=== PATIENT | female | born 1935 | race Caucasian/White ===

== ENCOUNTER 2022-10-06 08:57 | Emergency (ER) | payer MEDICARE, SELFPAY ==
[2022-10-06 09:11] VITALS: BP 141/78; PULSE 94; RESP 20; TEMP 36.6; O2SAT 100
--- NOTE | 2022-10-06 09:30 | ED.URI ---
HPI - URI/Sore Throat General Chief Complaint: Upper Respiratory Infection Stated Complaint: RUNNY NOSE/CONGESTION Time Seen by Provider: 10/06/22 09:29 Source: patient and RN notes reviewed Mode of arrival: ambulatory Limitations: no limitations History of Present Illness HPI Narrative: 86 Year old female presents with concern for cough, runny nose, wheezing from headache. She denies fever, aches, chills, sweats. She reports a history of reactive airway disease, she has a nebulizer at home. She has been using that throughout the day for the past 2 days. She last used at 3:00 a.m.. She reports she usually gets an annual exacerbation that requires antibiotics steroids. MD elicited complaint: cough Related Data Home Medications Medication Instructions Recorded Confirmed fluticasone 250 mcg-salmeterol 50 1 inh inhalation BID 10/06/22 10/06/22 mcg/dose blistr powdr for inhalation (Wixela Inhub) hydrochlorothiazide 25 mg tablet 25 mg EVERY OTHER DAY 10/06/22 10/06/22 montelukast 10 mg tablet 10 mg DAILY 10/06/22 10/06/22 omeprazole 20 mg capsule,delayed 20 mg BID 10/06/22 10/06/22 release Allergies Allergy/AdvReac Type Severity Reaction Status Date / Time No Known Allergies Allergy Verified 10/06/22 09:21 Review of Systems Review of Systems: CONSTITUTIONAL: Denies malaise, chills, sweats, or fever. EYES: Denies visual changes, redness, or discharge. ENT: Reports rhinorrhea. Congestion, sinus pain, otalgia and sore throat. CARDIOVASCULAR: Denies chest pain, palpitations, or edema. RESPIRATORY: Reports cough, wheezing. Denies dyspnea. GASTROINTESTINAL: Denies abdominal pain, nausea, vomiting, diarrhea SKIN: Denies rash or itching. MUSCULOSKELETAL: Denies myalgia. NEUROLOGIC: Reports headache. All systems reviewed & are unremarkable except as noted in HPI and below PMFSH Comments At time of signature, agree with nursing past medical, surgical, social and family history. There is no relevant family history pertinent to the presenting complaint Exam Narrative: GENERAL: Well-appearing, well-nourished, and in no acute distress. HEAD: Normocephalic EYES: PERRLA, conjunctivae clear ENT: Nares clear, turbinates edematous and erythematous, clear discharge. Mucous membranes moist. TM pearly fry with dull light reflex bilaterally; no tragal tenderness. Oropharynx not erythematous without lesions. Tonsils not enlarged and without exudate, no drooling, no hoarseness, no trismus, uvula midline. NECK: Supple. No lymphadenopathy CHEST: Scattered wheeze throughout, otherwise Clear to auscultation, breath sounds equal. Aeration good. No wheezing, rhonchi, rales, or stridor. No respiratory distress, speaks in full sentences. HEART: Regular rate and rhythm. No murmur heard. SKIN: Warm, dry, no rash. NEURO: Alert and oriented x3. PSYCH: Normal mood and affect Course Course Emergency Course: Patient is aware of diagnosis, understands and agrees to treatment plan. Anticipatory guidance given. Patient agrees to follow-up as directed and is aware of reasons to seek care at the emergency department. Portions of this record may have been created with voice recognition software Level of Care: Express Care Visit Vital Signs Vital signs: Vital Signs Temperature 97.8 F 10/06/22 09:11 Pulse Rate 94 10/06/22 09:11 Respiratory Rate 20 10/06/22 09:11 Blood Pressure 141/78 H 10/06/22 09:11 Pulse Oximetry 100 10/06/22 09:11 Temperature 97.8 F 10/06/22 09:11 Pulse Rate 94 10/06/22 09:11 Respiratory Rate 20 10/06/22 09:11 Blood Pressure 141/78 H 10/06/22 09:11 Pulse Oximetry 100 10/06/22 09:11 Oxygen Delivery Room Air 10/06/22 09:23 Reviewed. MDM - URI/Sore Throat MDM Narrative Medical decision making narrative: Differential diagnosis considered: Ruiz virus, strep pharyngitis, allergic rhinitis, upper respiratory tract infection, sinusitis, rhinosinusitis, nasopharyngitis. viral pharyn
== END 2022-10-06 09:51 | disposition home or self-care (01) ==
PROVIDERS: Emergency Provider Nurse Practitioner
DX: J45.901 Unspecified asthma with (acute) exacerbation (principal)
CPT/HCPCS: 99213; G0463

== ENCOUNTER 2022-11-03 11:30 | Emergency (ER) | payer MEDICARE, SELFPAY ==
[2022-11-03 11:51] VITALS: BP 125/81; PULSE 80; RESP 16; TEMP 37; O2SAT 97
--- NOTE | 2022-11-03 12:20 | ED.EAR ---
HPI - Ear Problem General Chief complaint: Ear Stated complaint: Ear infection Time Seen by Provider: 11/03/22 12:20 Source: patient Mode of arrival: ambulatory Limitations: no limitations History of Present Illness HPI Narrative: 86-year-old female presented for complaint of right ear pain worsening over the past 2-3 days. She endorses for about a week she has felt a fullness sensation. She states about 2 weeks ago she had respiratory infection. She has been using saline drops and thinks it is related. She denies tinnitus, dizziness, nausea, vomiting, fever or chills. MD Complaint: ear pain Related Data Home Medications Medication Instructions Recorded Confirmed fluticasone 250 mcg-salmeterol 50 1 inh inhalation BID 10/06/22 10/06/22 mcg/dose blistr powdr for inhalation (Wixela Inhub) hydrochlorothiazide 25 mg tablet 25 mg EVERY OTHER DAY 10/06/22 10/06/22 montelukast 10 mg tablet 10 mg DAILY 10/06/22 10/06/22 omeprazole 20 mg capsule,delayed 20 mg BID 10/06/22 10/06/22 release Allergies Allergy/AdvReac Type Severity Reaction Status Date / Time No Known Allergies Allergy Verified 10/06/22 09:21 Review of Systems Review of Systems: CONSTITUTIONAL: Denies malaise, chills, or fever. EYES: Denies visual changes, redness, or discharge. ENT: Denies rhinorrhea, congestion, sinus pain, and sore throat. Reports ear pain CARDIOVASCULAR: Denies chest pain, palpitations, or edema. RESPIRATORY: Denies cough or dyspnea. GASTROINTESTINAL: Denies abdominal pain, nausea, vomiting, diarrhea SKIN: Denies rash or itching. MUSCULOSKELETAL: Denies myalgia. NEUROLOGIC: Denies headache. All systems reviewed & are unremarkable except as noted in HPI and below PMFSH Comments At time of signature, agree with nursing past medical, surgical, social and family history. There is no relevant family history pertinent to the presenting complaint Exam Narrative: GENERAL: Well-appearing, well-nourished, and in no acute distress. HEAD: Normocephalic EYES: PERRLA, conjunctivae clear ENT: Nares clear. Mucous membranes moist. Left TM pearly fry with dull light reflex; right TM unable to visualize due to excess cerumen no tragal tenderness. CHEST: Clear to auscultation, breath sounds equal. No wheezing, rhonchi, rales, or stridor. No respiratory distress, speaks in full sentences. HEART: Regular rate and rhythm. SKIN: Warm, dry, no rash. NEURO: Alert and oriented x3. PSYCH: Normal mood and affect Course Course Emergency Course: Patient is aware of diagnosis, understands and agrees to treatment plan. Anticipatory guidance given. Patient agrees to follow-up as directed and is aware of reasons to seek care at the emergency department. Portions of this record may have been created with voice recognition software Level of Care: Express Care Visit Vital Signs Vital signs: Vital Signs Temperature 98.6 F 11/03/22 11:51 Pulse Rate 80 11/03/22 11:51 Respiratory Rate 16 11/03/22 11:51 Blood Pressure 125/81 11/03/22 11:51 Pulse Oximetry 97 11/03/22 11:51 Temperature 98.6 F 11/03/22 11:51 Pulse Rate 80 11/03/22 11:51 Respiratory Rate 16 11/03/22 11:51 Blood Pressure 125/81 11/03/22 11:51 Pulse Oximetry 97 11/03/22 11:51 Reviewed Procedures Ear Wax Removal Right Ear: Cerumenolytic Used: other (Equal parts warm water hydrogen peroxide) Results: Re-examined: cerumen removed completely TM Examination: TM(s) intact, normal appearance Ear Canal Exam: atraumatic Patient Tolerated Procedure: well and no complications Technique: ear canal irrigated and ear canal curetted Additional Comments: After large cerumen plug removed, patient reported immediate improvement in pain and hearing. Medical Decision Making MDM Narrative Medical decision making narrative: Advised supportive measures and signs/symptoms to go to the ER. Patient is appropriate for outpatien
== END 2022-11-03 13:10 | disposition home or self-care (01) ==
PROVIDERS: Emergency Provider Nurse Practitioner Family; PCP Internal Medicine
DX: H61.21 Impacted cerumen, right ear (principal)
CPT/HCPCS: 69210; 99212; G0463

== ENCOUNTER 2022-11-06 10:25 | Emergency (ER) | payer MEDICARE, SELFPAY ==
[2022-11-06 10:50] VITALS: BP 132/75; PULSE 88; RESP 16; TEMP 36.4; O2SAT 97
--- NOTE | 2022-11-06 11:56 | ED.EAR ---
HPI - Ear Problem General Chief complaint: Ear Stated complaint: rt ear pain Time Seen by Provider: 11/06/22 11:56 Source: patient Mode of arrival: ambulatory Limitations: no limitations History of Present Illness HPI Narrative: 86-year-old female presented for complaint of right ear pain and itching. She was seen in this facility 3 days ago complaint of ear pressure, and subsequent ear wax removal. Patient had reported improvement but states the itching persisted. She been inserted Debrox and hydrogen peroxide into the ear over the last few days. She endorses fullness and mild drainage noted. Denies tinnitus, dizziness, nausea, vomiting, fever chills. MD Complaint: ear pain Related Data Home Medications Medication Instructions Recorded Confirmed fluticasone 250 mcg-salmeterol 50 1 inh inhalation BID 10/06/22 11/06/22 mcg/dose blistr powdr for inhalation (Wixela Inhub) hydrochlorothiazide 25 mg tablet 25 mg PO EVERY OTHER DAY 10/06/22 11/06/22 montelukast 10 mg tablet 10 mg PO DAILY 10/06/22 11/06/22 omeprazole 20 mg capsule,delayed 20 mg PO BID 10/06/22 11/06/22 release albuterol sulfate 2.5 mg/3 mL 2.5 mg inhalation DIRECTED 11/06/22 11/06/22 (0.083 %) solution for nebulization Allergies Allergy/AdvReac Type Severity Reaction Status Date / Time No Known Allergies Allergy Verified 11/06/22 11:36 Review of Systems Review of Systems: CONSTITUTIONAL: Denies malaise, chills, or fever. EYES: Denies visual changes, redness, or discharge. ENT: Denies rhinorrhea, congestion, sinus pain, and sore throat. Reports ear pain CARDIOVASCULAR: Denies chest pain, palpitations, or edema. RESPIRATORY: Denies cough or dyspnea. GASTROINTESTINAL: Denies abdominal pain, nausea, vomiting, diarrhea SKIN: Denies rash or itching. MUSCULOSKELETAL: Denies myalgia. NEUROLOGIC: Denies headache. All systems reviewed & are unremarkable except as noted in HPI and below PMFSH Comments At time of signature, agree with nursing past medical, surgical, social and family history. There is no relevant family history pertinent to the presenting complaint Exam Narrative: GENERAL: Well-appearing, EYES: PERRLA, conjunctivae clear ENT: Nares clear. Mucous membranes moist. Left TM pearly fry with dull light reflex; Right TM unable to visualize due to swelling and erythema of canal, mild yellow drainage; not fully occluded; mild preauricular swelling and erythema; no tragal tenderness. Oropharynx not erythematous without lesions. Tonsils not enlarged and without exudate, no drooling, no hoarseness, no trismus, uvula midline. NECK: Supple. No lymphadenopathy CHEST: Clear to auscultation, breath sounds equal. HEART: Regular rate and rhythm. No murmur heard. SKIN: Warm, dry, no rash. NEURO: Alert and oriented x3. PSYCH: Normal mood and affect Course Course Emergency Course: Patient is aware of diagnosis, understands and agrees to treatment plan. Anticipatory guidance given. Patient agrees to follow-up as directed and is aware of reasons to seek care at the emergency department. Portions of this record may have been created with voice recognition software Level of Care: Express Care Visit Vital Signs Vital signs: Vital Signs Temperature 97.6 F 11/06/22 10:50 Pulse Rate 88 11/06/22 10:50 Respiratory Rate 16 11/06/22 10:50 Blood Pressure 132/75 11/06/22 10:50 Pulse Oximetry 97 11/06/22 10:50 Temperature 97.6 F 11/06/22 10:50 Pulse Rate 88 11/06/22 10:50 Respiratory Rate 16 11/06/22 10:50 Blood Pressure 132/75 11/06/22 10:50 Pulse Oximetry 97 11/06/22 10:50 Reviewed Medical Decision Making MDM Narrative Medical decision making narrative: Advised supportive measures and signs/symptoms to go to the ER. Patient is appropriate for outpatient treatment and follow-up. Differential Diagnosis Differential Diagnosis: Coronavirus, strep pharyngitis, allergic rhinitis, upper respiratory tract infec
== END 2022-11-06 12:13 | disposition home or self-care (01) ==
PROVIDERS: Emergency Provider Nurse Practitioner Family; PCP Internal Medicine
DX: H60.501 Unspecified acute noninfective otitis externa, right ear (principal); E78.00 Pure hypercholesterolemia, unspecified; I10 Essential (primary) hypertension
CPT/HCPCS: 99213; G0463

== ENCOUNTER 2023-01-06 07:21 | Outpatient (CLI) | payer MEDICARE, SELFPAY ==
[2023-01-06 08:20] LABS: Hematocrit 37.8 % (37.0-47.0); Hemoglobin 12.1 g/dL (12.0-15.0); Mean Corpuscular Hemoglobin 29.2 pg (26-34); Mean Corpuscular Volume 91.1 fl (80-100); Mean Platelet Volume 10.7 fl (7.4-10.4); Platelet Count Result 260 k/mm3 (150-375); Red Blood Count 4.15 M/mm3 (4.2-5.4); Red Cell Distribution Width 14.5 % (11.5-14.5); White Blood Count 6.7 K/mm3 (4.5-10.0)
[2023-01-06 08:29] LABS: Alanine Aminotransferase 22 U/L (6-35); Albumin Level 4.2 g/dL (3.5-5.1); Alkaline Phosphatase 108 U/L (38-126); Anion Gap 3 mmol/L (8-16); Aspartate Amino Transferase 31 U/L (14-36); Bilirubin,Total 0.6 mg/dL (0.2-1.3); Blood Urea Nitrogen 15 mg/dL (7-17); Calcium 8.7 mg/dL (8.4-10.2); Carbon Dioxide 31 mmol/L (22-30); Chloride 102 mmol/L (98-107); Estimated Glomerular Filt Rate > 60; Glucose 105 mg/dL (65-110); Potassium 3.5 mmol/L (3.4-5.0); Sodium 136 mmol/L (137-145)
[2023-01-06 09:37] LABS: Hemoglobin A1C 5.8 % (<5.7)
== END 2023-01-06 07:22 | disposition home or self-care (01) ==
PROVIDERS: PCP Internal Medicine; Visit Provider Nurse Practitioner
DX: K21.9 Gastro-esophageal reflux disease without esophagitis (principal); Z79.899 Other long term (current) drug therapy; Z87.898 Personal history of other specified conditions
CPT/HCPCS: 36415; 80053; 83036; 84443; 85027

== ENCOUNTER 2023-02-10 08:34 | Outpatient (CLI) | payer MEDICARE, SELFPAY ==
--- NOTE | 2023-02-10 08:59 | ECG_ITS ---
Measurements Intervals Morrison Rate: 70 P: 8 WI: 181 QRS: -39 QRSD: 94 T: 10 QT: 388 QTc: 419 Interpretive Statements SINUS RHYTHM MARKED LEFT AXIS DEVIATION [QRS AXIS < -30] NO PREVIOUS ECG AVAILABLE FOR COMPARISON Electronically Signed On 02-10-2023 10:49:16 CDT by Jon Velasco M.D.
== END 2023-02-10 08:35 | disposition home or self-care (01) ==
LOC: ANHSURGERY 08:40
PROVIDERS: PCP Internal Medicine; Visit Provider Surgery
DX: I10 Essential (primary) hypertension (principal)
CPT/HCPCS: 93005

== ENCOUNTER 2023-02-14 00:21 | Day surgery (SDC) | payer MEDICARE, SELFPAY ==
[2023-02-07 14:39] VITALS: BMI 29.0
--- NOTE | 2023-02-07 15:13 | PC.NURSE ---
Report to the Outpatient Waiting Room, entrance under the green pavilion located off [facility], at time __10:00AM on date __02/14/23 . Planned Procedure Time: ___12:00PM . Time changes happen often and if your time is changed the preop area will call you the afternoon before. - You and your visitor will be asked to self-screen and do not enter if you have any COVID symptoms. - Only one visitor is requested with a max of two and NO children visitors are allowed at this time. - The patient visitor may be requested to leave or wait in car when not with patient due to distancing restrictions. - A mask is optional within the hospital at this time. Patients may have clear liquids (water, carbonated beverages, clear teas, apple juice) until 3 hours prior to surgery with a maximum of 20 ounces. - No food from midnight until time of surgery Take the following medications with a SIP of water the morning of surgery: ___ADVAIR DISCUS, ALBUTEROL NEBULIZER NEEDED DO NOT STOP ANY OF YOUR OTHER PRESCRIPTION MEDICATIONS PRIOR TO SURGERY ?EXCEPT THE FOLLOWING Medications to discontinue per physician HOLD ALL VITAMINS/SUPPLEMENTS 3 DAYS PRE-OP Date to take last dose 02/10/23 Please no make-up, nail french, hairspray, perfume, deodorant, or body powder the day of surgery. No jewelry (including any body piercings) or valuables the day of surgery, leave them at home. Please take a shower or bath the night before, or the morning of, surgery with an antibacterial soap. Wear comfortable, loose fitting clothing. Children are encouraged to wear pajamas. - Jewelry must be removed prior to entering the operating room. Rings and piercings that are not removed may be cut off. - The hospital will not accept responsibility for valuables. - Please leave all valuables, including medications, at home the day of surgery. If you are going home after surgery, a licensed catering truck driver must drive you home. - NO public transportation without another adult if you receive anesthesia. - We recommend that an adult stay with you for 24 hours following discharge. - We also recommend that you do not drive, make important decision, drink alcoholic beverages, or take any drugs that were not prescribed by your health care provider for at least 24 hours after your discharge time. Follow any additional instructions given to you from your surgeon. HIBICLENS SHOWER MORNING OF SURGERY If you or anyone in your household have experienced Covid symptoms in the past week, please notify your surgeon or the nurse liaison at the phone number below for possible testing. Telephone instructions given to ___PATIENT and asked if any additional questions and then verbalized understanding. Patient advised to call surgeon office or pre surgery nurse liaison [phone] if any additional questions.
[2023-02-14] VITALS (9 sets, daily range): BP systolic 111–149; BP diastolic 63–94; PULSE 62–84; RESP 16; TEMP 36.6–36.9; O2SAT 96–100
--- NOTE | 2023-02-14 08:40 | WPDANESEPPF ---
Anes - Initial Pre Proc Eval Procedure: Operation Date: 02/14/23 12:00 Proposed Procedures p Open Incisional Hernia Repair with Mesh - James An DO Date/Time: 02/14/23 08:40 Surgeon: James An DO Pre Op Diagnosis: incisional hernia Patient Data Age: 87 Gender: F Height: 1.57 m Weight: 72 kg Allergies Allergy/AdvReac Type Severity Reaction Status Date / Time No Known Allergies Allergy Verified 02/14/23 10:13 Home Medications Medication Instructions Recorded Confirmed Type hydrochlorothiazide 25 mg tablet 25 mg PO EVERY OTHER DAY 10/06/22 02/14/23 History albuterol sulfate 2.5 mg/3 mL 2.5 mg inhalation DIRECTED PRN 11/06/22 02/14/23 History (0.083 %) solution for nebulization Dyspnea biotin 10,000 mcg chewable tablet 10,000 mcg PO DAILY #30 tabs 11/23/22 02/14/23 Rx (Hair, Skin and Nails (biotin)) fluticasone 250 mcg-salmeterol 50 See Rx Instructions .Route 01/05/23 02/14/23 Rx mcg/dose blistr powdr for .COMPLEX #180 ea inhalation montelukast 10 mg tablet 10 mg PO DAILY #90 tabs 01/05/23 02/14/23 Rx omeprazole 20 mg capsule,delayed 20 mg PO DAILY #90 caps 01/05/23 02/14/23 Rx release ascorbic acid 100 mg-elderberry 2 tablet PO DAILY 02/07/23 02/14/23 History fruit 50 mg chewable tablet (Airborne (elderberry)) calcium carbonate 600 mg-vitamin 2 tablet PO DAILY 02/07/23 02/14/23 History D3 5 mcg (200 unit) tablet lutein 40 mg capsule 40 mg PO DAILY 02/07/23 02/14/23 History multivit with min-folic 2 tablet PO DAILY 02/07/23 02/14/23 History acid-lutein 400 mcg-250 mcg chewable tablet (Centrum Silver) vitamin C 500 mg-multivitamin with 2 tablet PO DAILY 02/07/23 02/14/23 History minerals chewable tablet (Emergen-C) zinc 50 mg capsule 50 mg PO DAILY 02/07/23 02/14/23 History Patient hx anesthesia problems: none Family hx anesthesia problems: none Results Review: All pre-operative results and documents have been reviewed as part of the pre-operative evaluation. [facility] Past Medical History Medical History Asthma Chronic GERD History of depression History of prediabetes Osteopenia Last bone density 10/27 Surgical History Surgical History History of bilateral cataract extraction History of cholecystectomy History of hysterectomy History of lateral meniscus repair of left knee History of lumpectomy of left breast Family History Family History Mother , age 46 Breast cancer Sibling Heart disease age 25 Sibling Renal disease Social History Social History Smoking status: Never smoker Alcohol intake: current Alcohol use details: rare use Substance use: never Living arrangements: alone Additional living arrangements comments: Occupation/Education: retired Additional occupation/education comments: teacher, guidance counselor Gender identity (if verbalized by the patient): Female Sexual Orientation (if Verbalized by the Patient): Straight or Heterosexual Spiritual care concerns: No Anes - Eval Final PreProcedure Day of Procedure 02/14/23 08:40 Patient weight: overweight Heart: regular rate and rhythm Lungs: clear to auscultation Airway: Mallampati scale class II Neurological: alert and oriented Last oral intake: >/= 8 hours ASA classification: II Emergent: no Anesthetic plan: proceed Anesthesia type and monitoring: general ETT and standard monitoring Results Review: All pre-operative results and documents have been reviewed as part of the pre-operative evaluation. Informed Consent: The patient's anesthetic plan and its attendant risks and benefits were discussed with the patient/family/POA. Questions were solicited and answers provid
[2023-02-14] MEDS: ACETAMINOPHEN 500 MG TABLET 1000 MG PO (10:19)
[2023-02-14] MEDS: LACTATED RINGERS 1,000 ML 30 ML IV CONT (10:36)
[2023-02-14] MEDS: KETOROLAC 15 MG/ML VIAL (*BKC) IV PUSH (10:37)
--- NOTE | 2023-02-14 11:52 | WPDHPUPDATE1 ---
History and Physical Update Update Date/Time: 02/14/23 11:52 History and Physical has been reviewed, including an updated exam of the patient. There are NO changes in the patient's condition. Risks, benefits, and alternatives have been discussed and questions answered. Patient agrees to proceed with procedure.
--- NOTE | 2023-02-14 11:52 | PM.IMHP ---
H&P: HPI History of Present Illness Date/Time: 02/14/23 11:52 Chief Complaint: incisional hernia Narrative: 87 yo woman presents for incisional hernia repair. She denies any significant changes since last seen in office. Review of Systems Review of Systems: All systems reviewed & are unremarkable except as noted in HPI and below Constitutional: Constitutional: Denies chills, Denies fever(s), Denies headache(s) and Denies weight loss Eyes: Eyes: Denies change in vision ENT: Denies dizziness, Denies headache(s), Denies neck mass and Denies throat swelling Cardiovascular: Cardiovascular: Denies chest pain, Denies lightheadedness and Denies dyspnea Respiratory: Respiratory: Denies cough, Denies dyspnea and Denies wheezing Gastrointestinal: Gastrointestinal: Denies abdominal pain, Denies change in bowel habits, Denies nausea and Denies vomiting Genitourinary: Genitourinary: Denies hematuria and Denies dysuria Musculoskeletal: Musculoskeletal: Reports as per HPI Integumentary/Breasts: Skin/Breast: Reports as per HPI Neurologic: Denies dizziness and Denies headache(s) Allergic/Immunologic: Allergic/Immunologic: Denies throat swelling and Denies wheezing [facility] Past Medical History Medical History Asthma Chronic GERD History of depression History of prediabetes Osteopenia Last bone density 10/27 Surgical History Surgical History History of bilateral cataract extraction History of cholecystectomy History of hysterectomy History of lateral meniscus repair of left knee History of lumpectomy of left breast Family History Family History Mother , age 46 Breast cancer Sibling Heart disease age 25 Sibling Renal disease Social History Social History Smoking status: Never smoker Alcohol intake: current Alcohol use details: rare use Substance use: never Living arrangements: alone Additional living arrangements comments: Occupation/Education: retired Additional occupation/education comments: teacher, guidance counselor Gender identity (if verbalized by the patient): Female Sexual Orientation (if Verbalized by the Patient): Straight or Heterosexual Spiritual care concerns: No Meds Home Medications and Allergies Home Medications Medication Instructions Recorded Confirmed Type hydrochlorothiazide 25 mg tablet 25 mg PO EVERY OTHER DAY 10/06/22 02/14/23 History albuterol sulfate 2.5 mg/3 mL 2.5 mg inhalation DIRECTED PRN 11/06/22 02/14/23 History (0.083 %) solution for nebulization Dyspnea biotin 10,000 mcg chewable tablet 10,000 mcg PO DAILY #30 tabs 11/23/22 02/14/23 Rx (Hair, Skin and Nails (biotin)) fluticasone 250 mcg-salmeterol 50 See Rx Instructions .Route 01/05/23 02/14/23 Rx mcg/dose blistr powdr for .COMPLEX #180 ea inhalation montelukast 10 mg tablet 10 mg PO DAILY #90 tabs 01/05/23 02/14/23 Rx omeprazole 20 mg capsule,delayed 20 mg PO DAILY #90 caps 01/05/23 02/14/23 Rx release ascorbic acid 100 mg-elderberry 2 tablet PO DAILY 02/07/23 02/14/23 History fruit 50 mg chewable tablet (Airborne (elderberry)) calcium carbonate 600 mg-vitamin 2 tablet PO DAILY 02/07/23 02/14/23 History D3 5 mcg (200 unit) tablet lutein 40 mg capsule 40 mg PO DAILY 02/07/23 02/14/23 History multivit with min-folic 2 tablet PO DAILY 02/07/23 02/14/23 History acid-lutein 400 mcg-250 mcg chewable tablet (Centrum Silver) vitamin C 500 mg-multivitamin with 2 tablet PO DAILY 02/07/23 02/14/23 History minerals chewable tablet (Emergen-C) zinc 50 mg capsule 50 mg PO DAILY 02/07/23 02/14/23 History Allergies Allergy/AdvReac Type Severity Reaction Status Date / Time No Known Allergies Allergy
[2023-02-14] MEDS: ceFAZolin 2 GM/D5W 50 ML 2 GM/50 ML BAG IVPB (12:03)
[2023-02-14] MEDS: BUPIVACAINE/EPINEPHRINE 0.25% 10 ML VIAL 30 ML INFILTRATE (12:26)
--- NOTE | 2023-02-14 13:18 | W.PM.PROC2 ---
Procedure Note - Detailed Date of Procedure 02/14/23 Pre-op Diagnosis incisional hernia Post-op Diagnosis Same Procedure Performed Open incisional hernia repair with [address] Hernia patch Surgeon James An, DO Anesthesia General and Local (0.5% bupivacaine with epinephrine) Indications This is an 87-year-old woman who presented with an abdominal bulge that she noted about 4 years ago. She has some occasional pain with this. This is located at her umbilicus and she noticed this shortly after undergoing laparoscopic cholecystectomy. The hernia appears to be at 1 of her scars from previous laparoscopic cholecystectomy. Discussions were made with the patient about treatment options and decision was made to proceed with open incisional hernia repair with mesh. Findings Open incisional hernia repair was performed. Patient was found to have 5 cm hernia defect that was centered about her umbilicus. The hernia sac was freed up down to level of fascia and then was excised and sent to the lab for pathology. Hernia defect was measured and was about 5 cm wide. Peritoneum was very thin and she did not have much preperitoneal fat, therefore a preperitoneal pocket was created. Mesh was placed within the abdominal cavity and secured with 4 transfascial sutures and then the hernia defect was closed over the mesh using 0 Ethibond [id number] sutures in a vertical fashion. Description of Procedure Procedure as well as risks, benefits, and alternatives were discussed with the patient. Written consent was obtained and placed in chart prior to procedure. Patient was brought back to surgical suite. She was placed supine on operating table. She was then intubated by Anesthesia Department. Her abdomen was prepped and draped in sterile fashion using chlorhexidine prep. 0.5% bupivacaine with epinephrine was infiltrated locally around the operative area. A 5 cm curvilinear incision was made just inferior to the umbilicus using a 15 blade scalpel. Electrocautery was used for hemostasis and for dissection down through the subcutaneous fat. Hernia sac was encountered and this was carefully freed up from surrounding subcutaneous fat using electrocautery. The hernia sac was freed up all the way down to the level of the fascia, and then it was transected using electrocautery. The hernia sac was excised and sent to the lab for pathology. The umbilical stalk was then lifted off of the fascia with electrocautery. The hernia defect was then measured. This was measuring approximately 5 cm. The decision was made to use an [address] Hernia patch. There was not much preperitoneal fat and the peritoneum was very thin therefore it was too difficult to create a preperitoneal pocket. The mesh was placed within the abdominal cavity laid out flat centered on the hernia defect. The mesh appeared to be sitting in proper position. The mesh was then secured at the 4 corners using 0 Ethibond U-stitch trans fascial sutures. Once all 4 sutures were placed, the mesh was lifted up against the abdominal wall and appeared to be properly centered on the hernia defect. The fascia of the hernia defect was then reapproximated over the mesh using 0 Ethibond [id number] sutures. The 4 transfascial sutures were then tied down in place. The repair was inspected and appeared secure. 0.5% bupivacaine with epinephrine was infiltrated around the fascia and subcutaneous space. The umbilical stalk was then reapproximated to the fascia using a 3 0 Vicryl simple interrupted suture. The deep dermis was reapproximated using 3 0 Vicryl simple interrupted sutures, and then the skin was approximated using 4 Monocryl running subcuticular suture. Exofin glue was then applied on top. The patient was then awakened from anesthesia, extubated, and transferred to recovery. Implants [address] hernia patch Estimated Blood Loss 5 Pathology Yes (Hernia sac) Complications No immediate c
[2023-02-14] MEDS: fentaNYL CITRATE INJ (*CRX) 100 MCG/2 ML VIAL 25 MCG IV PUSH ×3 (13:44→14:22)
[2023-02-14] MEDS: oxyCODONE HCL (*CRX) 2.5 MG TAB IR PO (14:28)
== END 2023-02-14 15:25 | disposition home or self-care (01) ==
PROVIDERS: PCP Internal Medicine; Visit Provider Surgery
PROC: 0WQF0ZZ Repair Abdominal Wall, Open Approach (ICD-10-PCS; CPT 49593; principal; 2023-02-14 12:00)
DX: K43.2 Incisional hernia without obstruction or gangrene (principal); J45.909 Unspecified asthma, uncomplicated; K21.9 Gastro-esophageal reflux disease without esophagitis; M85.80 Other specified disorders of bone density and structure, unspecified site; Z79.51 Long term (current) use of inhaled steroids
CPT/HCPCS: 49593; 88302; A9270; C1781; J0690; J1100; J1885; J2405; J2704; J3010; J7120

== ENCOUNTER 2023-03-19 10:23 | Outpatient (CLI) | payer MEDICARE, SELFPAY ==
--- NOTE | ~2023-03-19 | MM_ITS ---
EXAMINATION: MM screening yesenia BI w raquel HISTORY: Screening mammogram, family history of breast cancer in her mother. TECHNIQUE: Craniocaudal and mediolateral oblique 3-D tomosynthesis images were obtained and synthetic 2-D images were generated. CAD analysis was submitted and interpreted. COMPARISON: No prior mammogram is available for comparison at this institution. BREAST PARENCHYMAL COMPOSITION: There are scattered areas of fibroglandular density. FINDINGS: RIGHT BREAST: An asymmetry is present in the anterior third of the slightly upper breast on the medio lateral oblique view 4 cm from the nipple. LEFT BREAST: There are areas of focal asymmetry in the anterior third of the outer breast and the low er inner breast. IMPRESSION: 1. Bilateral breast findings as above. which may represent the patient's baseline however no comparis on is currently available. 2. Comparison with prior mammograms is necessary. BI-RADS Category 0: Incomplete: Needs comparison with prior mammograms. Reviewed, dictated and finalized at location A. IMPRESSION: 1. Bilateral breast findings as above. which may represent the patient's baseli ne however no comparison is currently available. 2. Comparison with prior mammograms is necessary. BI-RADS Category 0: Incomplete: Needs comparison with prior mammograms.
== END 2023-03-19 10:24 | disposition home or self-care (01) ==
LOC: ANHIMG 10:27
PROVIDERS: PCP Internal Medicine; Visit Provider Nurse Practitioner
DX: Z12.31 Encounter for screening mammogram for malignant neoplasm of breast (principal); R92.8 Other abnormal and inconclusive findings on diagnostic imaging of breast
CPT/HCPCS: 77063; 77067

== ENCOUNTER 2023-11-26 09:07 | Outpatient (CLI) | payer MEDICARE, SELFPAY ==
[2023-11-26 10:08] LABS: Hematocrit 38.2 % (37.0-47.0); Mean Corpuscular HGB Conc 31.4 g/dl (32-36); Mean Corpuscular Hemoglobin 28.8 pg (26-34); Mean Corpuscular Volume 91.8 fl (80-100); Mean Platelet Volume 10.4 fl (7.4-10.4); Platelet Count Result 279 k/mm3 (150-375); Red Blood Count 4.16 M/mm3 (4.2-5.4); Red Cell Distribution Width 14.5 % (11.5-14.5); White Blood Count 7.8 K/mm3 (4.5-10.0)
[2023-11-26 10:22] LABS: Alanine Aminotransferase 18 U/L (6-35); Albumin Level 3.9 g/dL (3.5-5.1); Alkaline Phosphatase 107 U/L (38-126); Anion Gap 4 mmol/L (8-16); Aspartate Amino Transferase 30 U/L (14-36); Bilirubin,Total 0.5 mg/dL (0.2-1.3); Blood Urea Nitrogen 12 mg/dL (7-17); Calcium 8.9 mg/dL (8.4-10.2); Carbon Dioxide 34 mmol/L (22-30); Chloride 102 mmol/L (98-107); Estimated Glomerular Filt Rate > 60; Glucose 98 mg/dL (65-110); Potassium 3.8 mmol/L (3.4-5.0); Sodium 140 mmol/L (137-145)
[2023-11-26 12:29] LABS: Hemoglobin A1C 6.3 % (<5.7)
== END 2023-11-26 09:08 | disposition home or self-care (01) ==
LOC: ANHLAB 09:08
PROVIDERS: PCP Nurse Practitioner; Visit Provider Nurse Practitioner
DX: Z79.899 Other long term (current) drug therapy (principal)
CPT/HCPCS: 36415; 80053; 83036; 85027

== ENCOUNTER 2024-01-16 12:37 | Outpatient (CLI) | payer MEDICARE, SELFPAY ==
--- NOTE | ~2024-01-16 | MM_ITS ---
EXAMINATION: MM diagnostic yesenia LT w raquel HISTORY: Wrist pain TECHNIQUE: ML, MLO and CC 3-D tomosynthesis images of the left breast were performed and synthetic 2- D images were generated. Rolled medial and rolled lateral craniocaudal views. CAD analysis was submit braulio and interpreted. COMPARISON: 03/19/2023, 05/04/2021,07/03/2019bilateral screening mammogram examinations BREAST PARENCHYMAL COMPOSITION: There are scattered areas of fibroglandular density. FINDINGS: No suspicious mass or architectural distortion, malignant calcification, skin thickening or retraction or significant new or developing density is detected. IMPRESSION: 1. No mammographic evidence of malignancy 2. Routine mammographic screening is recommended BI-RADS Category 1: Negative Reviewed, dictated and finalized at location A.
== END 2024-01-16 12:38 | disposition home or self-care (01) ==
LOC: ANHIMG 12:41
PROVIDERS: PCP Nurse Practitioner; Visit Provider Family Medicine
DX: N64.4 Mastodynia (principal)
CPT/HCPCS: 77061; 77065; G0279

== ENCOUNTER 2024-04-20 11:31 | Emergency (ER) | payer MEDICARE, SELFPAY ==
--- NOTE | ~2024-04-20 | XR_ITS ---
Clinical Indication: Cough PA and lateral views of the chest: Comparison: None Findings: The lungs are clear, without evidence of focal consolidation or pleural effusion. Cardiome diastinal silhouette is within normal limits. Osseous structures are intact. Probable moderate slidin g hiatal hernia. Impression: Clear lungs. Probable moderate sliding hiatal hernia. Reviewed, dictated and finalized at location . Impression: Clear lungs. Probable moderate sliding hiatal hernia.
--- NOTE | 2024-04-20 11:35 | ED.URI ---
HPI - URI/Sore Throat General Chief Complaint: Upper Respiratory Infection Stated Complaint: Chest Congestion Time Seen by Provider: 04/20/24 11:34 Source: patient Mode of arrival: ambulatory Limitations: no limitations History of Present Illness HPI Narrative: Kiara is an 88-year-old female patient presenting to the clinic today with complaints of chest congestion, nasal congestion, and productive cough. States most of the cough production is clear but does note some yellow tension times. History of reactive airway disease/bronchitis. Denies any shortness of breath at this time. Denies any fever, chills, or body aches. Feels as though the congestion is settling in her chest. Related Data Home Medications Medication Instructions Recorded Confirmed ascorbic acid 100 mg-elderberry 2 tablet PO DAILY 02/07/23 05/26/23 fruit 50 mg chewable tablet (Airborne (elderberry)) lutein 40 mg capsule 40 mg PO DAILY 02/07/23 05/26/23 vitamin C 500 mg-multivitamin with 2 tablet PO DAILY 02/07/23 05/26/23 minerals chewable tablet (Emergen-C) multivitamin with minerals 1 tablet PO DAILY 05/26/23 05/26/23 (Hair,Skin and Nails tablet) calcium citrate 200 mg (950 mg) 200 mg PO BID 11/29/23 tablet multivit with min-folic 1 tablet PO DAILY 11/29/23 acid-lutein 400 mcg-250 mcg chewable tablet (Centrum Silver) Allergies Allergy/AdvReac Type Severity Reaction Status Date / Time No Known Allergies Allergy Verified 11/29/23 10:24 Review of Systems Review of Systems: Pertinent positives per HPI. Patient denies any fever, chills, rash, headache, visual changes, dizziness, sore throat, shortness of breath, chest pain, palpitations, nausea, vomiting, diarrhea, constipation, abdominal pain, or any urinary issues. [facility] [place] Past Medical History Medical History Asthma Chronic GERD History of depression History of prediabetes Osteopenia Last bone density 10/27 Surgical History Surgical History History of bilateral cataract extraction History of cholecystectomy History of hysterectomy History of incisional hernia repair 02/14/23 Open incisional hernia repair with [address] Hernia patch History of lateral meniscus repair of left knee History of lumpectomy of left breast Family History Family History Mother , age 46 Breast cancer Sibling Heart disease age 25 Sibling Renal disease Social History Social History Smoking status: Never smoker Alcohol intake: current Alcohol use details: rare use, wine Substance use: never Substance use type: does not use Lack of Transportation: No Lack of Food: Never True Current Housing: I Have Housing Concerned About Future Housing: No Difficulty Paying Gas/Electric Bills: No Difficulty Paying for Meds: No Currently Unemployed: No Education: Master's Degree or Higher Difficulty w/ Childcare or Family Care: No Living arrangements: alone Additional living arrangements comments: Occupation/Education: retired Additional occupation/education comments: teacher, guidance counselor Gender identity (if verbalized by the patient): Female Sexual Orientation (if Verbalized by the Patient): Straight or Heterosexual Spiritual care concerns: No Comments At the time of my signature, I reviewed and agree with the nursing past medical, surgical, social, and family history. There is no relevant family history pertinent to the patient complaint. Exam Narrative: General: Well-developed, well nourished, in no apparent distress Head: Normocephalic, atraumatic Eyes: Pupils equally round and reactive to light bilaterally, EOM intact, sclera and conjunctive clear, no discharge,
[2024-04-20 11:44] VITALS: BP 136/84; PULSE 78; RESP 16; TEMP 37.1; O2SAT 98
[2024-04-20] MEDS: IPRATROPIUM 0.5 MG/ALBUTEROL SULFATE 2.5 MG AMPUL.NEB 3 ML INHALATION (12:13)
--- NOTE | 2024-04-20 12:36 | PC.NURSE ---
pt states she is feeling better after nebulizer. Tolereated well. pt needs albuterol refill.
== END 2024-04-20 12:50 | disposition home or self-care (01) ==
PROVIDERS: Emergency Provider Nurse Practitioner Family; PCP Family Medicine
DX: J40 Bronchitis, not specified as acute or chronic (principal); Z20.822 Contact with and (suspected) exposure to COVID-19; K21.9 Gastro-esophageal reflux disease without esophagitis; R73.03 Prediabetes; M85.80 Other specified disorders of bone density and structure, unspecified site; J45.909 Unspecified asthma, uncomplicated; Z98.42 Cataract extraction status, left eye; Z98.41 Cataract extraction status, right eye
CPT/HCPCS: 71046; 87426; 99213; G0463

== ENCOUNTER 2024-06-05 08:36 | Outpatient (CLI) | payer MEDICARE, SELFPAY ==
[2024-06-05 09:36] LABS: Hematocrit 37.7 % (37.0-47.0); Hemoglobin 11.9 g/dL (12.0-15.0); Mean Corpuscular HGB Conc 31.6 g/dl (32-36); Mean Corpuscular Hemoglobin 28.5 pg (26-34); Mean Corpuscular Volume 90.4 fl (80-100); Mean Platelet Volume 10.7 fl (7.4-10.4); Platelet Count Result 242 k/mm3 (150-375); Red Blood Count 4.17 M/mm3 (4.2-5.4); Red Cell Distribution Width 14.5 % (11.5-14.5); White Blood Count 7.4 K/mm3 (4.5-10.0)
[2024-06-05 10:01] LABS: Alanine Aminotransferase 16 U/L (6-35); Albumin Level 4.4 g/dL (3.5-5.1); Alkaline Phosphatase 95 U/L (38-126); Anion Gap 7 mmol/L (4-12); Aspartate Amino Transferase 30 U/L (14-36); Bilirubin,Total 0.7 mg/dL (0.2-1.3); Blood Urea Nitrogen 19 mg/dL (7-17); Carbon Dioxide 33 mmol/L (22-30); Chloride 100 mmol/L (98-107); Cholesterol 183 mg/dL (0-200); Estimated Glomerular Filt Rate > 60; Glucose 101 mg/dL (65-110); HDL Direct 54 mg/dL; Potassium 3.9 mmol/L (3.4-5.0); Sodium 140 mmol/L (137-145); Triglycerides 69 mg/dL (<150)
[2024-06-05 10:12] LABS: LDL Cholesterol Direct 90 mg/dL
[2024-06-05 10:45] LABS: Hemoglobin A1C 6.3 % (<5.7)
== END 2024-06-05 08:37 | disposition home or self-care (01) ==
LOC: ANHLAB 08:41
PROVIDERS: PCP Family Medicine; Visit Provider Family Medicine
DX: J45.20 Mild intermittent asthma, uncomplicated (principal); K21.9 Gastro-esophageal reflux disease without esophagitis; Z87.898 Personal history of other specified conditions; M85.80 Other specified disorders of bone density and structure, unspecified site; Z79.899 Other long term (current) drug therapy
CPT/HCPCS: 36415; 80053; 80061; 82607; 83036; 85027

== ENCOUNTER 2024-09-12 08:13 | Outpatient (CLI) | payer MEDICARE, SELFPAY ==
[2024-09-12 11:39] LABS: Hemoglobin A1C 6.1 % (<5.7)
== END 2024-09-12 08:14 | disposition home or self-care (01) ==
LOC: ANHLAB 08:14
PROVIDERS: PCP Family Medicine; Visit Provider Family Medicine
DX: R73.03 Prediabetes (principal); Z79.899 Other long term (current) drug therapy
CPT/HCPCS: 36415; 83036

== ENCOUNTER 2024-10-30 09:20 | Emergency (ER) | payer MEDICARE, SELFPAY ==
[2024-10-30 09:33] VITALS: BP 155/71; PULSE 69; RESP 16; TEMP 36.9; O2SAT 98
--- NOTE | 2024-10-30 09:50 | ED_ITS ---
HPI - URI/Sore Throat General Chief Complaint: Upper Respiratory Infection Stated Complaint: SORE THROAT/RUNNY NOSE Time Seen by Provider: 10/30/24 09:45 Source: patient Mode of arrival: ambulatory Limitations: no limitations History of Present Illness HPI Narrative: Kiara is an 88-year-old female patient presenting to the clinic today with complaints of sore throat, runny nose, cough, and chest congestion. Symptoms started 2 days ago. Is coughing up some yellow phlegm. Denies any shortness of breath or chest pain. No fever or chills. Patient has history of asthma. MD elicited complaint: sore throat and nasal congestion Related Data Home Medications ?Medication ?Instructions ?Recorded ?Confirmed ?Last Taken ?Type ascorbic acid 100 mg-elderberry 2 tablet PO DAILY 02/07/23 05/26/23 02/11/23 History fruit 50 mg chewable tablet (Airborne (elderberry)) lutein 40 mg capsule 40 mg PO DAILY 02/07/23 05/26/23 02/11/23 History vitamin C 500 mg-multivitamin with 2 tablet PO DAILY 02/07/23 05/26/23 02/11/23 History minerals chewable tablet (Emergen-C) calcium citrate 200 mg PO BID 11/29/23 Unknown History qbijktnfqtqo-nrvwzgj-jlvul acid 1 tablet PO DAILY 11/29/23 Unknown History 400 mcg-lutein 250 mcg chewable tablet (Centrum Silver) Allergies Allergy/AdvReac Type Severity Reaction Status Date / Time No Known Allergies Allergy Verified 06/12/24 09:50 Review of Systems Review of Systems: Pertinent positives per HPI. Patient denies any fever, chills, rash, headache, visual changes, dizziness, shortness of breath, chest pain, palpitations, n ausea, vomiting, diarrhea, constipation, abdominal pain, or any urinary issues. [facility] Past Medical History Medical History Asthma Chronic GERD History of depression History of prediabetes Osteopenia Last bone density 10/27 Surgical History Surgical History History of incisional hernia repair 02/14/23 Open incisional hernia repair with [address] Hernia patch History of bilateral cataract extraction History of lumpectomy of left breast History of hysterectomy History of lateral meniscus repair of left knee History of cholecystectomy Family History Family History Mother , age 46 Breast cancer Sibling Heart disease age 25 Sibling Renal disease Social History Social History Smoking status: Never smoker Alcohol intake: current Alcohol use details: rare use, wine Substance use: never Substance use type: does not use Lack of Transportation: No Lack of Food: Never True Current Housing: I Have Housing Concerned About Future Housing: No Difficulty Paying Gas/Electric Bills: No Difficulty Paying for Meds: No Currently Unemployed: No Education: Master's Degree or Higher Difficulty w/ Childcare or Family Care: No Living arrangements: alone Additional living arrangements comments: Occupation/Education: retired Additional occupation/education comments: teacher, guidance counselor Gender identity (if verbalized by the patient): Female Sexual Orientation (if Verbalized by the Patient): Straight or Heterosexual Spiritual care concerns: No Comments At the time of my signature, I reviewed and agree with the nursing past medical, surgical, social, and family history. There is no relevant family history pertinent to the patient complaint. Exam Narrative: General: Well-developed, well nourished, in no apparent distress Head: Normocephalic, atraumatic Eyes: Pupils equally round and reactive to light bilaterally, EOM intact, sclera and conjunctive clear, no discharge, lids normal Ears: TMs intact and clear, ear canals clear, no drainage, grossly hearing normal. Nose: Nares patent, clear nasal discharge, no inflammation, no sinus tenderness. Mouth: Oral pharynx red without lesions or masses, good dentition, MMM. Postnasal drip Neck: Supple, trachea midline, no enlargement of anterior or posterior cervical nodes, no thyroid masses or goiter palpable. Cardio: Regular rate and rhythm, s1 and s2 normal, no murmur appreciated. Resp: Diminished in the bilateral lower bases, no rhonchi, rales, wheezing or rubs Course Course Emergency Course: Portions of this record may have been created with voice recognition software. Level of Care: Express Care Visit Vital Signs Vital signs: Vital Signs Temperature 36.9 C 10/30/24 09:33 Pulse Rate 69 10/30/24 09:33 Respiratory Rate 16 10/30/24 09:33 Blood Pressure 155/71 H 10/30/24 09:33 Pulse Oximetry 98 10/30/24 09:33 Temperature 36.9 C 10/30/24 09:33 Pulse Rate 69 10/30/24 09:33 Respiratory Rate 16 10/30/24 09:33 Blood Pressure 155/71 H 10/30/24 09:33 Pulse Oximetry 98 10/30/24 09:33 Vital signs reviewed MDM - URI/Sore Throat MDM Narrative Medical decision making narrative: At the time of visit patient is resting comfortably on the exam table. Patient appears to be nontoxic. Plan: I suspect patient has bronchitis. Prescription for azithromycin and prednisone was sent to the pharmacy. Supportive measures were discussed with the patient and they voiced understanding discharge instructions and agrees to treatment plan. Return precautions reviewed Differential Diagnosis Differential diagnosis: Likely upper respiratory infection, otitis media, sinusitis, viral infection, bronchitis, influenza, pharyngitis and other (COVID) Discharge Plan Discharge Clinical Impression: Bronchitis Patient Disposition: Home, Self-Care Condition: Stable Instructions: Antibiotic Form, Acute Bronchitis (ED) Additional Instructions: Take prescription medications only as prescribed-azithromycin and prednisone Increase fluids and stay well hydrated Tylenol/motrin for pain/fever Flonase and OTC antihistamines as directed Vicks vapor rub to open sinuses Sinus rinses for congestion Cepacol spray, cough drops, throat lozenges, warm tea with honey/lemon, gargle salt water to soothe throat BRAT diet for diarrhea Clear liquids x 24 hours then advance as tolerated for nausea/vomiting Go to the ED if you develop a worsening in your condition- high fever not controlled by Tylenol or Motrin, dehydration, weakness, lethargy, shortness of breath, or chest pain. Follow up with your PCP in 3-5 days if symptoms persist. Patient Language: Urdu Prescriptions: New azithromycin 250 mg tablet See Rx Instructions .ROUTE .COMPLEX Qty: 6 0RF Rx Instructions: For 250 mg dose pack: take 500 mg today (day 1), then 250 mg for 4 days (days 2-5) prednisone 20 mg tablet 40 mg PO DAILY 5 Days Qty: 10 0RF No Action albuterol sulfate 2.5 mg /3 mL (0.083 %) solution for nebulization 2.5 mg inhalation Q6H PRN (Reason: shortness of breath or wheezing) 30 Days Qty: 90 0RF calcium citrate 200 mg (950 mg) tablet 200 mg PO BID Hair, Skin and Nails (biotin) 10,000 mcg tablet,chewable 10,000 mcg PO DAILY Qty: 30 0RF lutein 40 mg Capsule 40 mg PO DAILY Rx Instructions: administer with meals Emergen-C 500 mg Tablet,Chewable 2 tablet PO DAILY ascorbic acid-elderberry fruit [Airborne (elderberry)] 100-50 mg Tablet,Chewable 2 tablet PO DAILY Centrum Silver 400-250 mcg tablet,chewable 1 tablet PO DAILY albuterol sulfate 2.5 mg /3 mL (0.083 %) solution for nebulization 2.5 mg inhalation DIRECTED PRN (Reason: Dyspnea) Qty: 75 0RF hydrochlorothiazide 25 mg tablet See Rx Instructions .ROUTE .COMPLEX Qty: 90 1RF Dose Instruction: TAKE 1 TABLET BY MOUTH EVERY OTHER DAY IN THE MORNING Rx Instructions: TAKE 1 TABLET BY MOUTH EVERY OTHER DAY IN THE MORNING omeprazole 20 mg capsule,delayed release(DR/EC) 20 mg PO DAILY Qty: 90 1RF montelukast 10 mg tablet See Rx Instructions .ROUTE .COMPLEX Qty: 90 0RF Dose Instruction: TAKE 1 TABLET BY MOUTH DAILY Rx Instructions: TAKE 1 TABLET BY MOUTH DAILY fluticasone propion-salmeterol 230-21 mcg/actuation HFA aerosol inhaler See Rx Instructions .ROUTE .COMPLEX Qty: 12 0RF Dose Instruction: INHALE 2 PUFFS BY MOUTH TWICE DAILY Rx Instructions: INHALE 2 PUFFS BY MOUTH TWICE DAILY mirabegron 25 mg tablet extended release 24 hr See Rx Instructions .ROUTE .COMPLEX Qty: 30 0RF Dose Instruction: TAKE 1 TABLET BY MOUTH DAILY Rx Instructions: TAKE 1 TABLET BY MOUTH DAILY Follow-up/Referrals: Adrien Shay MD [Primary Care Provider] - Time of Disposition: 09:51 Quality NIHSS Nursing Documentation ED NIHSS nursing documentation: reviewed/agree
== END 2024-10-30 09:55 | disposition home or self-care (01) ==
PROVIDERS: Emergency Provider Nurse Practitioner Family; PCP Family Medicine
DX: J40 Bronchitis, not specified as acute or chronic (principal)
CPT/HCPCS: 99213; G0463